=== PATIENT | male | born 1965 | race African-American/Black ===

== ENCOUNTER 2019-08-29 | Emergency (ER) | payer OTHER ==
[2019-08-30] MEDS ORDERED: STERAPRED DS10 MG PO (14:38)
[2019-08-30] MEDS ORDERED: TRAMADOL HCL50 MG PO (14:38)
== END 2019-08-30 00:11 | disposition left against medical advice (07) | DRG 313 ==
DX: R07.9 Chest pain, unspecified (principal); M25.511 Pain in right shoulder; Z91.19 Patient's noncompliance with other medical treatment and regimen

== ENCOUNTER 2019-08-30 | Emergency (ER) | payer OTHER ==
[2019-08-30] MEDS ORDERED: TRAMADOL HCL50 MG PO (14:38)
[2019-08-30] MEDS ORDERED: STERAPRED DS10 MG PO (14:38)
== END 2019-08-30 14:51 | disposition home or self-care (01) | DRG 74 ==
DX: M54.12 Radiculopathy, cervical region (principal)

== ENCOUNTER 2019-09-01 | Emergency (ER) | payer OTHER ==
[~2019-09-01] MED LIST: STERAPRED DS10 MG PO; TRAMADOL HCL50 MG PO
[2019-09-01] MEDS ORDERED: CYCLOBENZAPR5 MG PO ×2 (14:24→15:10)
[2019-09-01] MEDS ORDERED: VOLTAREN1%GEL TOP ×2 (14:24→15:10)
== END 2019-09-01 15:13 | disposition home or self-care (01) | DRG 552 ==
DX: M54.6 Pain in thoracic spine (principal); M62.830 Muscle spasm of back